=== PATIENT | male | born 1950 | race Caucasian/White ===

== ENCOUNTER 2019-01-16 09:04 | Outpatient (CLI) | payer MEDICARE, BC ==
[2019-01-16] MEDS ORDERED: Gadobenate Dimeglumine 529 MG/1 ML (20ML VIAL) ONE (11:50)
--- NOTE | 2019-01-16 12:43 | MRI ---
MRI OF THE PELVIS WITH AND WITHOUT CONTRAST: INDICATION: No history of prior prostate biopsy; elevated PSA. TECHNIQUE: Multiplanar, multisequence MR images were obtained of the pelvis with and without contrast utilizing 15 cc of MultiHance. The images were interpreted on a separate 3D Digital [employer] work station for multipara metric evaluation. FINDINGS: The prostate measures 5.3 x 4.0 x 4.5 cm giving an estimated prostatic volume of 39.82 cc. There are heterogeneous BPH nodules seen within the central gland, a few protruding into the base of the bladder. Within the peripheral zone, there is some hazy intermediate to low T2 and isointense T1 signal withou t evidence of restricted diffusion. No abnormal dynamic contrast enhancement is evident within the prostate. There is a mildly prominent right common femoral lymph node measuring 1.1 cm. No additional enlarged lymph node is evident. No free fluid is identified. No marrow signal abnormality is evident. IMPRESSION: 1. PIRADS category 2 - low (clinically significant cancer is unlikely to be present). 2. Some intermediate to low T2 signal seen within the peripheral zone of the prostate gland can be s een with fibrosis related to prior prostatitis. There are a few mildly prominent benign prostatic hy pertrophic nodules seen within the central gland. POS: [facility]
== END 2019-01-16 09:05 | disposition home or self-care (01) ==
LOC: TBSIIMAG 09:04
DX: R97.20 Elevated prostate specific antigen [PSA] (principal)
CPT/HCPCS: 72197; 82565; A9577